=== PATIENT | male | born 1970 | race Caucasian/White ===

== ENCOUNTER 2021-03-25 00:39 | Day surgery (SDC) | payer OTHER, SELFPAY ==
[2021-03-10 14:25] VITALS: BMI 32.8
[2021-03-25 06:13] VITALS: BP 132/84; PULSE 80; RESP 18; TEMP 36.6; O2SAT 98; BMI 31.4
[2021-03-25] MEDS: LACTATED RINGERS 1,000 ML 150 ML IV CONT (06:31)
[2021-03-25 06:32] LABS: Glucose Point of Care 162 mg/dl (65-105)
--- NOTE | 2021-03-25 07:24 | P.PNAN_ITS ---
Anes - Initial Pre Proc Eval Procedure: Operation Date: 03/25/21 07:30 Proposed Procedures p Screening Colonoscopy - New Barnes MD Date/Time: 03/25/21 07:24 Surgeon: New Barnes MD Pre Op Diagnosis: neoplasm screening Patient Data Age: 50 Gender: M Height: 1.73 m Weight: 93.9 kg Last Vital Signs Temp 97.8 F 03/25/21 06:13 Pulse 80 03/25/21 06:13 Resp 18 03/25/21 06:13 BP 132/84 03/25/21 06:13 Pulse Ox 98 03/25/21 06:13 Allergies Allergy/AdvReac Type Severity Reaction Status Date / Time No Known Allergies Allergy Verified 03/25/21 06:19 Home Medications Medication Instructions Recorded Confirmed Type acyclovir 400 mg tablet 400 mg PO BID #180 tablet 10/09/20 03/25/21 Rx lisinopril 5 mg tablet 5 mg PO DAILY #90 tablet 10/09/20 03/25/21 Rx empagliflozin 25 mg tablet 25 mg PO DAILY #30 tablet 03/06/21 03/25/21 Rx glipizide 10 mg tablet 10 mg PO BID #180 tablet 03/20/21 03/25/21 Rx metformin 1,000 mg tablet 1,000 mg PO BID #180 tablet 03/20/21 03/25/21 Rx simvastatin 40 mg tablet 40 mg PO DAILY #90 tablet 03/20/21 03/25/21 Rx Laboratory Tests 03/25/21 06:25 POC Capillary Glucose 162 mg/dl H mg/dl (65-105) Patient hx anesthesia problems: none Family hx anesthesia problems: none Results Review: All pre-operative results and documents have been reviewed as part of the pre-operative evaluation. [facility] Past Medical History Medical History (Updated 10/09/20 @ 17:45 by Kathe Lafleur NP) Genital herpes Hyperlipidemia Hypertension Type 2 diabetes mellitus Family History Family History (Updated 10/09/20 @ 14:06 by Beata Ahmadi CMA) Father Hypertension Mother Cerebrovascular accident Grandparent Hypertension Heart disease Social History Social History (Updated 10/09/20 @ 14:08 by Beata Ahmadi CMA) Smoking status: Never smoker Alcohol intake: never Substance use: never Substance use type: does not use Living arrangements: with family Spiritual care concerns: No Anes - Eval Final PreProcedure Day of Procedure 03/25/21 07:24 Patient weight: obese Heart: regular rate and rhythm Lungs: clear to auscultation Airway: Mallampati scale class III Neurological: alert and oriented Last oral intake: >/= 8 hours ASA classification: III Emergent: no Anesthetic plan: proceed Anesthesia type and monitoring: general GIVS and standard monitoring Results Review: All pre-operative results and documents have been reviewed as part of the pre-operative evaluation. Informed Consent: The patient's anesthetic plan and its attendant risks and benefits were discussed with the patient/family/POA. Questions were solicited and answers provided to the satisfaction of the patient/family/POA.
--- NOTE | 2021-03-25 07:27 | PM.HPGS ---
History of Present Illness History of Present Illness Consent: Risks, benefits, and alternatives have been discussed and questions answered. Patient agrees to proceed with procedure. Chief complaint: neoplasm screening Narrative: Anshul Nguyễn is a 50 year old male here for first screening colonoscopy Review of Systems Constitutional: Constitutional: Denies headache(s) and Denies weakness Eyes: Eyes: Denies blurry vision ENT: Reports Normal hearing present, Denies headache(s) and Denies neck pain Cardiovascular: Cardiovascular: Denies chest pain and Denies dyspnea Respiratory: Respiratory: Denies dyspnea Gastrointestinal: Gastrointestinal: Reports no additional gastrointestinal complaints Genitourinary: Genitourinary: Denies dysuria Musculoskeletal: Musculoskeletal: Denies neck pain Integumentary/Breasts: Skin/Breast: Denies dry skin Neurologic: Reports Normal hearing present, Denies headache(s) and Denies weakness Psychiatric: Psychiatric: Denies anxiety Endocrine: Endocrine: Denies change in body appearance Hematologic/Lymphatic: Hematologic/Lymphatic: Denies easy bleeding Allergic/Immunologic: Allergic/Immunologic: Denies urticaria PMF Past Medical History Medical History (Updated 03/25/21 @ 07:28 by New Barnes MD) Colon cancer screening Genital herpes Hyperlipidemia Hypertension Type 2 diabetes mellitus Family History Family History (Updated 10/09/20 @ 14:06 by Beata Ahmadi CMA) Father Hypertension Mother Cerebrovascular accident Grandparent Hypertension Heart disease Social History Social History (Updated 10/09/20 @ 14:08 by Beata Ahmadi CMA) Smoking status: Never smoker Alcohol intake: never Substance use: never Substance use type: does not use Living arrangements: with family Spiritual care concerns: No Meds Home Medications and Allergies Home Medications Medication Instructions Recorded Confirmed Type acyclovir 400 mg tablet 400 mg PO BID #180 tablet 10/09/20 03/25/21 Rx lisinopril 5 mg tablet 5 mg PO DAILY #90 tablet 10/09/20 03/25/21 Rx empagliflozin 25 mg tablet 25 mg PO DAILY #30 tablet 03/06/21 03/25/21 Rx glipizide 10 mg tablet 10 mg PO BID #180 tablet 03/20/21 03/25/21 Rx metformin 1,000 mg tablet 1,000 mg PO BID #180 tablet 03/20/21 03/25/21 Rx simvastatin 40 mg tablet 40 mg PO DAILY #90 tablet 03/20/21 03/25/21 Rx Allergies Allergy/AdvReac Type Severity Reaction Status Date / Time No Known Allergies Allergy Verified 03/25/21 06:19 Vital Signs Vital Signs - 24 hr 03/25/21 06:13 Temperature 97.8 F Pulse Rate 80 Respiratory Rate 18 Blood Pressure 132/84 Pulse Oximetry 98 Exam Const: General: comfortable and no acute distress HENMT: General nose exam: Normal nares present Eyes: General: appearance normal, both eyes and all related structures Neck: Neck: no JVD Resp: Auscultation: clear to auscultation bilaterally Cardio: Rate: regular rate Rhythm: regular rhythm GI: Inspection: non-distended GI Palp: Yes Soft to palpation Skin: General skin exam: normal color Neuro: General: gait normal Speech: normal speech Extrem: General: normal to inspection Psych: Mental Status: mental status grossly normal Assessment and Plan Assessment and plan (1) Colon cancer screening: Code(s): Z12.11 - Encounter for screening for malignant neoplasm of colon Status: Acute Assessment and Plan: colonoscopy
[2021-03-25 08:02] VITALS: BP 97/68; PULSE 68; RESP 18; O2SAT 94
[2021-03-25 08:12] VITALS: BP 101/65; PULSE 63; RESP 17; O2SAT 97
[2021-03-25 08:22] VITALS: BP 97/66; PULSE 65; RESP 18; O2SAT 96
== END 2021-03-25 08:34 | disposition home or self-care (01) ==
PROVIDERS: PCP Nurse Practitioner; Visit Provider Internal Medicine Gastroenterology
PROC: 0DJD8ZZ Inspection of Lower Intestinal Tract, Via Natural or Artificial Opening Endoscopic (ICD-10-PCS; CPT 45378; principal; 2021-03-25 07:30)
DX: Z12.11 Encounter for screening for malignant neoplasm of colon (principal); K57.30 Diverticulosis of large intestine without perforation or abscess without bleeding; E78.5 Hyperlipidemia, unspecified; I10 Essential (primary) hypertension; E11.9 Type 2 diabetes mellitus without complications; Z79.84 Long term (current) use of oral hypoglycemic drugs; E66.9 Obesity, unspecified; Z68.31 Body mass index [BMI] 31.0-31.9, adult
CPT/HCPCS: 45378; 82948; J2704; J7120

== ENCOUNTER 2022-09-15 16:55 | Emergency (ER) | payer OTHER, SELFPAY ==
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
[2022-09-15 17:20] VITALS: BP 137/80; PULSE 61; RESP 16; TEMP 37.3; O2SAT 100
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
== END 2022-09-15 18:44 | disposition home or self-care (01) ==
PROVIDERS: Emergency Provider Nurse Practitioner; PCP Nurse Practitioner
DX: S60.222A Contusion of left hand, initial encounter (principal); V43.52XA Car driver injured in collision with other type car in traffic accident, initial encounter; S39.012A Strain of muscle, fascia and tendon of lower back, initial encounter; S16.1XXA Strain of muscle, fascia and tendon at neck level, initial encounter; E78.5 Hyperlipidemia, unspecified; I10 Essential (primary) hypertension; E11.9 Type 2 diabetes mellitus without complications
CPT/HCPCS: 72050; 72100; 73130; 99214; G0463

== ENCOUNTER 2022-11-15 19:33 | Emergency (ER) | payer OTHER, SELFPAY ==
[2022-11-15 19:40] VITALS: BP 136/89; PULSE 87; RESP 18; TEMP 37; O2SAT 97
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
== END 2022-11-15 19:59 | disposition home or self-care (01) ==
PROVIDERS: Emergency Provider Nurse Practitioner Family; PCP Nurse Practitioner
DX: L23.7 Allergic contact dermatitis due to plants, except food (principal); E78.5 Hyperlipidemia, unspecified; I10 Essential (primary) hypertension; E11.9 Type 2 diabetes mellitus without complications
CPT/HCPCS: 99213; G0463

== ENCOUNTER 2022-11-17 08:00 | Outpatient (RCR) | payer OTHER, SELFPAY ==
--- NOTE | 2022-10-15 09:52 | OPREHPOC ---
Outpatient Therapy Plan of Care This is a Multidisciplinary Plan of Care that may contain components documented by all disciplines (PT, OT, and ST.) PT Problem 1 PT Problem #1 Knowledge Deficit PT Goal 1 Goal Pt to be IND with issued HEP Target Visit 4 PT Problem 2 PT Problem #2 Pain PT Goal 1 Goal Pt to report low back and L shoulder pain no greater than 3/10 in the last week Target Visit 4 PT Goal 2 Goal Pt to report 90% return to PLOF. Target Visit 4 PT Problem 3 PT Problem #3 Impaired Range of Motion PT Goal 1 Goal Pt to increased cervical R lateral flexion to 35 deg Target Visit 4 PT Goal 2 Goal Pt to report equal stretch sensation with passive piriformis stretch Target Visit 4
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
== END 2022-11-18 09:11 | disposition home or self-care (01) ==
LOC: ANHGOSHPT 08:00
PROVIDERS: PCP Family Medicine; Visit Provider Family Medicine
DX: M54.6 Pain in thoracic spine (principal); M54.50 Low back pain, unspecified; V49.50XD Passenger injured in collision with unspecified motor vehicles in traffic accident, subsequent encounter
CPT/HCPCS: 97110; 97161; 97530

== ENCOUNTER 2025-01-13 09:23 | Emergency (ER) | payer OTHER, SELFPAY ==
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
[2025-01-13 09:30] VITALS: BP 139/74; PULSE 71; RESP 20; TEMP 37.1; O2SAT 99
== END 2025-01-13 09:43 | disposition home or self-care (01) ==
PROVIDERS: Emergency Provider Nurse Practitioner Family; PCP Family Medicine
DX: L23.7 Allergic contact dermatitis due to plants, except food (principal); E11.9 Type 2 diabetes mellitus without complications; Z79.84 Long term (current) use of oral hypoglycemic drugs; E78.5 Hyperlipidemia, unspecified
CPT/HCPCS: 99213; G0463

== ENCOUNTER 2025-03-30 17:25 | Emergency (ER) | payer OTHER, SELFPAY ==
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
[2025-03-30 17:34] VITALS: BP 147/94; PULSE 98; RESP 18; TEMP 37; O2SAT 99
== END 2025-03-30 17:51 | disposition home or self-care (01) ==
PROVIDERS: Emergency Provider Nurse Practitioner; PCP Family Medicine
DX: N48.1 Balanitis (principal); E11.9 Type 2 diabetes mellitus without complications; Z79.84 Long term (current) use of oral hypoglycemic drugs; E78.5 Hyperlipidemia, unspecified
CPT/HCPCS: 99213; G0463